=== PATIENT | female | born 1980 | race Caucasian/White ===

== ENCOUNTER 2019-01-08 23:07 | Emergency (ER) | payer OTHER ==
[~2019-01-08] VITALS: Ht 160 cm; Wt 61.2 kg
--- NOTE | 2019-01-08 23:36 | NUR ---
BIB SELF C/O L SIDED CP WITH PAIN ON INSPIRATION X3 DAYS
--- NOTE | 2019-01-09 00:28 | NUR ---
Patient discharged to home in stable condition. Written and verbal after care instructions given. Patient verbalizes understanding of instruction.
[2019-01-09 00:30] VITALS: BP 130/85
== END 2019-01-09 00:34 | disposition home or self-care (01) ==
LOC: ER 23:07
DX: M94.0 Chondrocostal junction syndrome [Tietze] (principal); Z87.891 Personal history of nicotine dependence
CPT/HCPCS: 71045-TC